=== PATIENT | female | born 1955 | race Caucasian/White ===

== ENCOUNTER 2016-09-03 11:21 | Emergency (ER) | payer MEDICARE, OTHER | END 2016-09-03 13:50 | disposition home or self-care (01) | LOC: ER 11:21 | PROC: 0HQKXZZ Repair Right Lower Leg Skin, External Approach (ICD-10-PCS; principal; 2016-09-03) | PROC: 2W38X1Z Immobilization of Right Upper Extremity using Splint (ICD-10-PCS; 2016-09-03) | DX: S62.306A Unspecified fracture of fifth metacarpal bone, right hand, initial encounter for closed fracture (principal); S81.011A Laceration without foreign body, right knee, initial encounter; I10 Essential (primary) hypertension; F32.9 Major depressive disorder, single episode, unspecified; Z88.1 Allergy status to other antibiotic agents; Z88.8 Allergy status to other drugs, medicaments and biological substances; W01.0XXA Fall on same level from slipping, tripping and stumbling without subsequent striking against object, initial encounter | CPT/HCPCS: 73130-RT; 73560-RT; 73610-RT; 90471; 90714; 96374; 99284; J1170; J2405 ==